=== PATIENT | female | born 1950 | race Two or more races ===

== ENCOUNTER 2018-06-09 11:25 | Emergency (ER) | payer MEDICARE, MEDICAID ==
[~2018-06-09] VITALS: Ht 152.4 cm; Wt 59.0 kg
[2018-06-09] MEDS ORDERED: ASPirin 81 mg TAB PO ONE (11:45)
[2018-06-09 12:08] LABS: Basophils # (auto) 0.1 uL; Basophils % (auto) 0.7 % (0.0-2.0); Eosinophils # (auto) 0.2 uL; Eosinophils % (auto) 2.8 % (0.0-7.0); Hematocrit 42.7 % (36.0-46.0); Hemoglobin 14.2 g/dL (12.2-16.2); Lymphocytes # (auto) 4.8 uL; Lymphocytes % (auto) 54.3 % (10.0-50.0); Mean Corpuscular Hemoglobin 30.6 pg (28.0-32.0); Mean Corpuscular Hgb Conc. 33.4 g/dL (32.0-36.0); Mean Corpuscular Volume 91.6 fL (80.0-100.0); Monocytes # (auto) 0.5 uL; Monocytes % (auto) 5.5 % (0.0-12.0); Neutrophils # (auto) 3.2 uL; Neutrophils % (auto) 36.7 % (37.0-80.0); Nucleated Red Blood Cells % 0.1 %; Platelet Count (auto) 234 10^3/uL (140-450); Red Blood Cells 4.66 10^6/uL (4.0-5.20); Red Cell Distribution Width 12.7 % (11.8-14.3); White Blood Cell 8.8 10^3/uL (4.4-10.8)
[2018-06-09 12:30] LABS: INR 0.95 (0.9-1.15); Partial Thromboplastin Time 27.6 sec (23.78-33.04); Prothrombin Time 10.2 sec (9.27-12.13)
[2018-06-09 12:31] LABS: Albumin 4.3 g/dL (3.4-5.0); Anion Gap 5 (5-15); Blood Urea Nitrogen 18 mg/dL (7-18); Calcium 9.3 mg/dL (8.5-10.1); Carbon Dioxide 29 mmol/L (21-32); Chloride 104 mmol/L (98-107); Glucose 98 mg/dL (74-106); Potassium 4.2 mmol/L (3.5-5.1); Sodium 138 mmol/L (136-145)
[2018-06-09 12:37] LABS: Alanine Aminotransferase 17 U/L (13-56); Alkaline Phosphatase 80 U/L (45-117); Aspartate Aminotransferase 14 U/L (15-37); BUN/Creatinine Ratio 21.7; Bilirubin, Total 0.4 mg/dL (0.2-1.0); GFR African American 87 mL/min; GFR Non-African American 72 mL/min; Total Protein 7.7 g/dL (6.4-8.2)
[2018-06-09] MEDS ORDERED: HYDROcodone-ACET 10/325MG TAB PO ONE (13:15)
[2018-06-09 13:37] LABS: Urine Bacteria NONE SEEN /hpf (None Seen); Urine Blood Negative /uL (Negative); Urine Specific Gravity 1.011 (1.001-1.035); Urine WBC 1 /hpf (0 - 5)
[2018-06-09] MEDS: KETOROLAC TROMETH 30 MG/ML 1ML VIAL IV ONE ×2 (15:15→15:43)
[2018-06-09 15:52] VITALS: BP 133/82
== END 2018-06-09 16:50 | disposition home or self-care (01) ==
LOC: ER 11:27
DX: R07.89 Other chest pain (principal); N39.0 Urinary tract infection, site not specified; I11.0 Hypertensive heart disease with heart failure; I50.9 Heart failure, unspecified; J44.9 Chronic obstructive pulmonary disease, unspecified; Z90.710 Acquired absence of both cervix and uterus; Z86.711 Personal history of pulmonary embolism; Z88.1 Allergy status to other antibiotic agents; Z88.6 Allergy status to analgesic agent
CPT/HCPCS: 36415; 71045; 80053; 81001; 84484; 85025; 85610; 85730; 93005; 96374; 99284; J1885

== ENCOUNTER 2019-01-10 05:55 | Inpatient (IN) | payer MEDICARE, MEDICAID ==
[~2019-01-10] VITALS: Ht 162.6 cm; Wt 77.3 kg
[2019-01-10 06:49] LABS: Basophils # (auto) 0.1 uL; Eosinophils # (auto) 0.1 uL; Eosinophils % (auto) 1.1 % (0.0-7.0); Hematocrit 43.2 % (36.0-46.0); Hemoglobin 14.1 g/dL (12.2-16.2); Lymphocytes % (auto) 39.7 % (10.0-50.0); Mean Corpuscular Hemoglobin 30.6 pg (28.0-32.0); Mean Corpuscular Hgb Conc. 32.6 g/dL (32.0-36.0); Mean Corpuscular Volume 93.9 fL (80.0-100.0); Monocytes # (auto) 0.6 uL; Neutrophils # (auto) 5.2 uL; Neutrophils % (auto) 52.2 % (37.0-80.0); Nucleated Red Blood Cells % 0.2 %; Platelet Count (auto) 274 10^3/uL (140-450); Red Cell Distribution Width 14.5 % (11.8-14.3); White Blood Cell 9.9 10^3/uL (4.4-10.8)
[2019-01-10] MEDS ORDERED: ONDANSETRON HCL 4 MG/2 ML VIAL IV ONE (07:00)
[2019-01-10] MEDS ORDERED: MORPHINE SULF INJ 2 MG/ML SYRINGE 1ML IV ONE (07:00)
[2019-01-10] MEDS ORDERED: SODIUM CHLORIDE 0.9% 500 ML IV ONE (07:00)
[2019-01-10 07:10] LABS: Calcium 8.3 mg/dL (8.5-10.1); Potassium 3.7 mmol/L (3.5-5.1)
[2019-01-10 07:18] LABS: Albumin 3.5 g/dL (3.4-5.0); BUN/Creatinine Ratio 17.8; Bilirubin, Total 0.3 mg/dL (0.2-1.0)
[2019-01-10] MEDS ORDERED: traMADol HCL 50 MG TAB PO PRN (09:45)
[2019-01-10] MEDS ORDERED: DEXTROSE (50%) 50ML SYRG IV PRN (09:45)
[2019-01-10] MEDS ORDERED: LACTULOSE 20Gm/30ML SOLN PO PRN (09:45)
[2019-01-10] MEDS ORDERED: ACETAMINOPHEN 500 MG TAB PO PRN (09:45)
[2019-01-10] MEDS ORDERED: ALBUTEROL SULF 2.5 MG/0.5ML(0.5%) NEB SOLN NEB PRN (09:45)
[2019-01-10] MEDS: PANTOPRAZOLE 40 MG TAB PO SCH (10:23)
[2019-01-10] MEDS: ENOXAPARIN SOD 40 MG/0.4 ML SYRINGE SC SCH (10:24)
[2019-01-10] MEDS: methylPREDNISolone SOD SUCC 40 MG/ML VL IV SCH ×2 (10:24→22:08)
--- NOTE | 2019-01-10 11:04 | NUR ---
MS admit from ER BLANCA PATEL admitted to tele/MS after report received. Patient oriented to ABHIJIT ANDRE RN primary RN, unit, room, bed, and unit policies regarding patient care and visiting hours. Patient weighed by bedscale and encouraged to call if they need something. All questions and concerns addressed, patient verbalized understanding.
--- NOTE | 2019-01-10 11:05 | NUR ---
Ambulate to bathroom Ambulated patient to bathroom with moderate assistance from aide. Patient expressed some pain. Patient ambulated back to bed with the same assistance.
[2019-01-10] MEDS: InsuLIN REG 1unit/0.01ml Soln (100units/ml) SC SCH ×3 (11:30→22:00)
[2019-01-10] MEDS: IPRATROPIUM BROM 0.5 MG/2.5ML INH SOL NEB SCH ×2 (11:47→19:32)
[2019-01-10] MEDS: ALBUTEROL SULF 2.5 MG/0.5ML(0.5%) NEB SOLN NEB SCH ×2 (11:47→19:32)
[2019-01-10] MEDS: LEVOFLOXACIN 500MG 100 ML IV SCH (12:07)
[2019-01-10] MEDS: ACCU-CHEK COMFORT CURVE STRIP VI SCH ×3 (12:07→22:07)
[2019-01-10] MEDS ORDERED: CARV6.2551 PO (12:23)
[2019-01-10] MEDS ORDERED: PANT1INJ3 PO (12:23)
[2019-01-10] MEDS ORDERED: GABA300C10 PO (12:23)
[2019-01-10] MEDS ORDERED: ASPI-498 PO (12:23)
[2019-01-10] MEDS ORDERED: IBUP600T27 PO (12:23)
[2019-01-10] MEDS ORDERED: MELA3TAB27 PO (12:23)
[2019-01-10] MEDS ORDERED: LEV100T PO (12:23)
[2019-01-10] MEDS ORDERED: CYCL7.5T15 PO (12:23)
[2019-01-10] MEDS ORDERED: KEP500T PO (12:23)
[2019-01-10] MEDS ORDERED: RIVA20TA PO (12:23)
[2019-01-10] MEDS ORDERED: CYA100I PO (12:23)
[2019-01-10] MEDS ORDERED: AMIO200T33 PO (12:23)
[2019-01-10] MEDS ORDERED: POTA10TA51 PO (12:23)
[2019-01-10] MEDS ORDERED: AMLO5TAB15 PO (12:23)
[2019-01-10] MEDS ORDERED: FURO20TA3 PO (12:23)
[2019-01-10] MEDS ORDERED: CYCL5TAB PO (12:23)
[2019-01-10 13:00] VITALS: BP 114/61
--- NOTE | 2019-01-10 13:00 | NUR ---
Bedside Commode Patient is now using bedside commode with moderate assistance.
[2019-01-10 13:45] VITALS: BP 109/67
--- NOTE | 2019-01-10 14:21 | NUR ---
Re: Wound Photos Patient refuses to have pictures taken at this time. Patient states, "they already took pictures downstairs." Will put in wound care consult for abrasion to the right knee.
[2019-01-10 16:59] VITALS: BP 101/57
--- NOTE | 2019-01-10 17:00 | NUR ---
Re: Ortho Consult Dr. Espinosa at bedside. Patient does not require surgery.
[2019-01-10] MEDS: traMADol HCL 50 MG TAB PO PRN ×2 (17:50→22:39)
[2019-01-10 17:58] VITALS: BP 114/61
--- NOTE | 2019-01-10 19:45 | NUR ---
Closing Shift Note Patient resting in bed. Patient shows no signs or symptoms of distress. Will endorse care to the cage shift manager RN.
--- NOTE | 2019-01-10 19:50 | NUR ---
Opening Shift Note Assumed care of patient, awake and alert. No S/S of distress/SOB or pain. Instructed on POC and to call for assist PRN, will continue to monitor for changes Q1hr and PRN.
[2019-01-10] MEDS: PROMETHAZINE HCL 25 MG/ML 1ML IV PRN (22:39)
[2019-01-10 22:44] VITALS: BP 107/65
[2019-01-11] MEDS: ALBUTEROL SULF 2.5 MG/0.5ML(0.5%) NEB SOLN NEB SCH ×5 (00:22→23:43)
[2019-01-11] MEDS: IPRATROPIUM BROM 0.5 MG/2.5ML INH SOL NEB SCH ×5 (00:22→23:43)
[2019-01-11] MEDS: TEMAZEPAM 15 MG CAP PO PRN ×2 (01:43→22:51)
[2019-01-11 05:53] VITALS: BP 108/61
[2019-01-11] MEDS: ACCU-CHEK COMFORT CURVE STRIP VI SCH ×4 (06:38→22:35)
[2019-01-11] MEDS: InsuLIN REG 1unit/0.01ml Soln (100units/ml) SC SCH ×4 (06:39→22:00)
[2019-01-11 09:00] VITALS: BP 113/73
[2019-01-11] MEDS: methylPREDNISolone SOD SUCC 40 MG/ML VL IV SCH ×2 (09:45→22:33)
[2019-01-11] MEDS: ENOXAPARIN SOD 40 MG/0.4 ML SYRINGE SC SCH (09:45)
[2019-01-11] MEDS: LEVOFLOXACIN 500MG 100 ML IV SCH (09:45)
[2019-01-11] MEDS: PANTOPRAZOLE 40 MG TAB PO SCH (09:45)
[2019-01-11 13:00] VITALS: BP 120/71
--- NOTE | 2019-01-11 13:20 | NUR ---
WOUND CARE NOTE: Wound care in to see patient per wound care request regarding "wound to R knee" that are noted present on admission. Patient is 68 y/o female admitted Post mechanical Fall at home. Patient with history of htn, DM, CKD, liver disease, PE, COPD. Patient is resting in bed in Rm. 296B. Patient is awake,alert and oriented. She's able to assist in turning and repositioning. Her Amadou score is 19. Patient is in no stated pain at this time. No wound noted other that 1.8x2.2cm partial thickness abrasion to R knee. Cleansed wound with NS, patted dry with sterile gauze applied Thera honey gel and covered with Bandaid. Photographs of wound are taken for reference. Patient tolerated well. Bed in low position, call snowden on hand, bed alarm on. No further wound care monitoring needed at this time. RECOMMENDATION: EOD/PRN dressing change to Rt. knee abrasion per MD order, frequent turning and repositioning schedule as condition permits, redistribute pressure points with pillows,elevate heels on pillows, new wound consult in case of active wound,pressure injury, Amadou score of 12 and below. Addendum: 01/11/19 at 1726 by Ksenia Jang RN Amended: Links added.
[2019-01-11] MEDS: GABAPENTIN 400 MG CAP PO SCH ×2 (14:25→22:34)
[2019-01-11 17:00] VITALS: BP 114/72
[2019-01-11] MEDS: traMADol HCL 50 MG TAB PO PRN (17:49)
[2019-01-11] MEDS: PROMETHAZINE HCL 25 MG/ML 1ML IV PRN (17:56)
[2019-01-11] MEDS ORDERED: LORazepam 2MG/ML-1ML VIAL IV PRN (20:00)
--- NOTE | 2019-01-11 20:30 | NUR ---
Received call from [facility] that patient is scheduled for MRA of the neck and 20 gauge IV catheter is needed for the procedure. Communication relayed to the patient. Patient has a 22 gauge IV and needed IV restart for 20 gauge. Patient refused IV restart at this time. Patient aware of the importance for the new IV restart for the procedure to push through. Patient still refused. Will continue to monitor patient.
[2019-01-11 22:00] VITALS: BP 130/87
--- NOTE | 2019-01-11 22:00 | NUR ---
Patient reminded of the IV reinsertion. Patient still refused at this time. Care continued.
[2019-01-11] MEDS: HYDROcodone-ACET 7.5/325MG TAB PO PRN (22:34)
[2019-01-11] MEDS: LEVETIRACETAM 500 MG TAB PO SCH (22:34)
[2019-01-12 05:00] VITALS: BP 129/74
[2019-01-12] MEDS: GABAPENTIN 400 MG CAP PO SCH ×3 (05:54→22:25)
[2019-01-12] MEDS: HYDROcodone-ACET 7.5/325MG TAB PO PRN ×4 (05:54→21:45)
--- NOTE | 2019-01-12 06:00 | NUR ---
Patient reminded of the needed Iv restart. Patient still refused. Care continued.
[2019-01-12] MEDS: ALBUTEROL SULF 2.5 MG/0.5ML(0.5%) NEB SOLN NEB SCH ×3 (06:17→18:59)
[2019-01-12] MEDS: IPRATROPIUM BROM 0.5 MG/2.5ML INH SOL NEB SCH ×3 (06:18→18:59)
--- NOTE | 2019-01-12 06:45 | NUR ---
UA and UDS specimen sent. Patient verbalized having BM this morning. No complains at this time. Will give report to oncoming RN.
[2019-01-12] MEDS: ACCU-CHEK COMFORT CURVE STRIP VI SCH ×4 (07:03→22:25)
[2019-01-12] MEDS: InsuLIN REG 1unit/0.01ml Soln (100units/ml) SC SCH ×4 (07:03→22:00)
--- NOTE | 2019-01-12 07:15 | NUR ---
Patient has no complains at his time. All questions and concerns addressed. All needs attended to. Report given to oncoming RN including, but not limited to: patient refusing 20 gauge IV reinsertion; signed paper for request for release of information from [facility] with apartment community assistant manager.
[2019-01-12 07:22] LABS: Urine WBC None Seen /hpf (0 - 5)
[2019-01-12 07:31] LABS: Urine Bacteria FEW /hpf (None Seen); Urine Blood Negative /uL (Negative); Urine Specific Gravity 1.015 (1.001-1.035)
[2019-01-12 08:02] LABS: Alcohol, Urine < 3.0 mg/dL (0-5); Amphetamine Screen, Urine NEGATIVE (NEGATIVE); Barbiturate Scree,Urine NEGATIVE (NEGATIVE); Benzodiazephine Screen, Urine NEGATIVE (NEGATIVE); Cannabinoid Screen, Urine NEGATIVE (NEGATIVE); Cocaine Screen, Urine NEGATIVE (NEGATIVE); Opiate Scree,Urine POSITIVE (NEGATIVE); Phencyclidine Screen, Urine NEGATIVE (NEGATIVE)
--- NOTE | 2019-01-12 08:10 | NUR ---
Radiology called to clarify orders between md davila and md brandon, informed radiology of pt refusing 20g iv insertion, angio cannot be done with out 20g iv
[2019-01-12 09:10] VITALS: BP 126/78
[2019-01-12] MEDS: ENOXAPARIN SOD 40 MG/0.4 ML SYRINGE SC SCH (09:30)
[2019-01-12] MEDS: methylPREDNISolone SOD SUCC 40 MG/ML VL IV SCH ×2 (09:30→22:03)
[2019-01-12] MEDS: LEVOFLOXACIN 500MG 100 ML IV SCH (09:30)
[2019-01-12] MEDS: LEVETIRACETAM 500 MG TAB PO SCH ×2 (09:31→22:25)
[2019-01-12] MEDS: PANTOPRAZOLE 40 MG TAB PO SCH (09:31)
--- NOTE | 2019-01-12 10:32 | NUR ---
MD Gupta rounded on pt updated on plan of care notified him of pt refusal for bigger iv placement unable with current iv to recieve contrasted procedures
--- NOTE | 2019-01-12 11:15 | NUR ---
EEG COMPLETED AT BEDSIDE. SG LINDO.
--- NOTE | 2019-01-12 11:54 | NUR ---
mri called to come get pt for scan of the brain
--- NOTE | 2019-01-12 12:42 | NUR ---
pt back from mri
[2019-01-12 13:00] VITALS: BP 112/72
[2019-01-12] MEDS ORDERED: LORazepam 2MG/ML-1ML VIAL IV PRN (15:30)
--- NOTE | 2019-01-12 17:05 | NUR ---
PT REFUSED UNITS OF INSULIN STATED "MY BLOOD SUGAR WILL DROP TO MUCH AFTER I EAT" EDUCTAION GIVEN RISK AND BENEFITS EXPLAINED
[2019-01-12 17:06] VITALS: BP 116/80
[2019-01-12 22:00] VITALS: BP 119/66
--- NOTE | 2019-01-12 22:05 | NUR ---
HOSPITALIST PAGED The patient c/o worsening coughing that began this morning. The patient states that she is unable to resting with the coughing and requested medication for coughing. Hospitalist has been notified and new order for Robitussin has been received.
[2019-01-12] MEDS: guaiFENesin-DM 100/10mg/5ml SYR PO PRN (22:26)
[2019-01-12] MEDS: TEMAZEPAM 15 MG CAP PO PRN (22:26)
[2019-01-13] MEDS: IPRATROPIUM BROM 0.5 MG/2.5ML INH SOL NEB SCH ×4 (00:12→19:21)
[2019-01-13] MEDS: ALBUTEROL SULF 2.5 MG/0.5ML(0.5%) NEB SOLN NEB SCH ×4 (00:12→19:21)
[2019-01-13] MEDS: HYDROcodone-ACET 7.5/325MG TAB PO PRN ×2 (02:22→07:34)
[2019-01-13 05:46] VITALS: BP 133/83
[2019-01-13] MEDS: InsuLIN REG 1unit/0.01ml Soln (100units/ml) SC SCH ×4 (06:18→22:00)
[2019-01-13] MEDS: GABAPENTIN 400 MG CAP PO SCH ×3 (06:18→23:00)
[2019-01-13] MEDS: ACCU-CHEK COMFORT CURVE STRIP VI SCH ×4 (06:18→23:00)
--- NOTE | 2019-01-13 07:30 | NUR ---
Opening Shift Note Assumed care of patient, awake and alert. No S/S of distress/SOB or pain ON 2 LPM via nasal cannula. Instructed on POC and to call for assist PRN, will continue to monitor for changes Q1hr and PRN. Bed in low and locked position, rails up x2, no-slip socks on, bedside commode within reach.
--- NOTE | 2019-01-13 08:00 | NUR ---
TRANSDERMAL PAIN PATCH ON MORNING ASSESSMENT FOUND TRANSDERMAL BUPRENORPHINE PATCH 15MCG/H ON PATIENT, SHE STATES THAT SHE HAS HAD IT ON SINCE MONDAY, ORDERED BY HER PAIN MANAGEMENT DR SAMAYOA AND THAT SHE STILL NEEDS IT ON. INFORMED PATIENT ON RISK OF DRUG INTERACTION AND ACCUMULATION IF LEFT ON AND THAT I WILL INFORM THE PHYSICIAN OF HER HOME USE AND ANY EQUIVALENT WE MAY HAVE TO OFFER HER IN ITS PLACE. PATIENT VERBALIZES UNDERSTANDING. PATCH REMOVED AND DISPOSED OF, CHARTED IN PATIENTS MED REC. WILL CONTINUE TO MONITOR PATIENT.
[2019-01-13 08:45] VITALS: BP 133/83
[2019-01-13 09:00] VITALS: BP 105/72
[2019-01-13] MEDS: LEVOFLOXACIN 500MG 100 ML IV SCH (10:12)
[2019-01-13] MEDS: methylPREDNISolone SOD SUCC 40 MG/ML VL IV SCH ×2 (10:12→22:59)
[2019-01-13] MEDS: PANTOPRAZOLE 40 MG TAB PO SCH (10:13)
[2019-01-13] MEDS: ENOXAPARIN SOD 40 MG/0.4 ML SYRINGE SC SCH (10:13)
[2019-01-13] MEDS: LEVETIRACETAM 500 MG TAB PO SCH ×2 (10:13→23:00)
--- NOTE | 2019-01-13 10:15 | NUR ---
DR Jannie FRENCH AT BEDSIDE INFORMED PATIENT OF TRANSDERMAL PAIN PATCH AND PATIENTS PAIN MANAGEMENT FOR SPINAL STENOSIS, NEW PAIN MEDICATION ADDED. AWAITING DR HARDING AND INFORMATION FROM [facility].
--- NOTE | 2019-01-13 10:30 | NUR ---
DR HARDING AT BEDSIDE REVIEWED MEDICAL RECORDS FROM [facility] INCLUDING BRAIN ANGIOGRAM PERFORMED BY DR Osmani JERONIMO, PER DR HARDING HE WILL REVIEW PLAN OF CARE WITH DR Jannie FRENCH.
[2019-01-13] MEDS ORDERED: [UNRECOGNIZED DRUG - CODE] TD (11:05)
[2019-01-13] MEDS: MORPHINE SULF INJ 2 MG/ML SYRINGE 1ML IV PRN ×4 (11:18→22:55)
--- NOTE | 2019-01-13 12:08 | NUR ---
PHYSICAL THERAPY AT BEDSIDE PATIENT AMBULATING WITH FRONT WHEEL WALKER, STEADY GAIT.
--- NOTE | 2019-01-13 12:11 | NUR ---
Nutrition Assessment Notes please see attached link for complete assessment Est. Needs BW 77 [id number] kcal (23-25 kcal/kgBW), 77-84 gms pro (1.0-1.1 gms/kgBW). Will continue to monitor pertinent labs and reassess nutrient need prn Addendum: 01/13/19 at [address] Amended: Links added.
[2019-01-13 13:00] VITALS: BP 112/79
[2019-01-13] MEDS: guaiFENesin-DM 100/10mg/5ml SYR PO PRN ×2 (15:11→19:24)
[2019-01-13 16:33] VITALS: BP 117/73
--- NOTE | 2019-01-13 19:25 | NUR ---
Opening Shift Note Assumed care of patient, awake and alert. No S/S of distress/SOB. Patient c/o coughing and requested cough medication. Will treat with PRN Robitussin. Instructed on POC and to call for assist PRN, will continue to monitor for changes Q1hr and PRN.
--- NOTE | 2019-01-13 19:45 | NUR ---
Patient is ambulating in the hallway with walker. Patient is tolerating ambulation well. Addendum: 01/13/19 at 1948 by Christopher Alejandro RN *Wrong patient*
[2019-01-13 21:53] VITALS: BP 126/72
--- NOTE | 2019-01-13 22:10 | NUR ---
INSULIN REFUSAL Patient refuses insulin for a blood sugar of 154. The patient states that her blood sugar is "fine" and that she does not take insulin at home. Patient educated on the risk of medication refusal. Patient verbalized understanding but still refuses.
[2019-01-14] MEDS: IPRATROPIUM BROM 0.5 MG/2.5ML INH SOL NEB SCH ×4 (00:17→19:28)
[2019-01-14] MEDS: ALBUTEROL SULF 2.5 MG/0.5ML(0.5%) NEB SOLN NEB SCH ×4 (00:17→19:28)
[2019-01-14] MEDS: MORPHINE SULF INJ 2 MG/ML SYRINGE 1ML IV PRN ×5 (04:04→22:04)
[2019-01-14] MEDS: guaiFENesin-DM 100/10mg/5ml SYR PO PRN ×3 (04:04→22:03)
[2019-01-14 05:44] VITALS: BP 121/76
[2019-01-14] MEDS: GABAPENTIN 400 MG CAP PO SCH ×3 (06:30→22:04)
[2019-01-14] MEDS: InsuLIN REG 1unit/0.01ml Soln (100units/ml) SC SCH ×4 (06:31→22:05)
[2019-01-14] MEDS: ACCU-CHEK COMFORT CURVE STRIP VI SCH ×4 (06:31→22:05)
--- NOTE | 2019-01-14 06:45 | NUR ---
INSULIN REFUSAL Patient refuses insulin for a blood sugar of 155. Patient educated again on the risk of medication refusal. Patient verbalized understanding but still refuses.
--- NOTE | 2019-01-14 07:34 | NUR ---
Opening Shift Note Assumed care of patient, awake and alert. No S/S of distress/SOB. Patient rated pain at 10/10. Bed in lowest and locked position with side rails up x2 and call light in reach. Instructed on POC and to call for assist PRN, will continue to monitor for changes Q1hr and PRN.
[2019-01-14 08:41] VITALS: BP 140/89
--- NOTE | 2019-01-14 10:00 | NUR ---
PATIENT REFUSED WOUND CARE. PATIENT EDUCATED ON THE RISKS AND BENEFITS. PATIENT CONTINUES TO REFUSE.
[2019-01-14] MEDS: methylPREDNISolone SOD SUCC 40 MG/ML VL IV SCH ×2 (10:37→22:01)
[2019-01-14] MEDS: LEVOFLOXACIN 500MG 100 ML IV SCH (10:37)
[2019-01-14] MEDS: PANTOPRAZOLE 40 MG TAB PO SCH (10:38)
[2019-01-14] MEDS: ENOXAPARIN SOD 40 MG/0.4 ML SYRINGE SC SCH (10:38)
[2019-01-14] MEDS: LEVETIRACETAM 500 MG TAB PO SCH ×2 (10:38→22:04)
[2019-01-14 13:00] VITALS: BP 119/76
--- NOTE | 2019-01-14 13:00 | NUR ---
ATTEMPT TO CHANGE IV PT REFUSING IV CHANGE. PT STATED THAT SHE DOESN'T WANT TO BE POKED WITH ANOTHER IV. THE PT WAS EDUCATED ON THE RISKS/BENEFITS OF CHANGING THE IV. PT VERBALIZED UNDERSTANDING.
[2019-01-14 16:46] VITALS: BP 126/74
--- NOTE | 2019-01-14 19:25 | NUR ---
Opening Shift Note Assumed care of patient, awake and alert x 4. No S/S of distress/SOB. Bed is in lowest position and locked. Call light within reach. Board updated. Instructed on POC and to call for assist PRN, will continue to monitor for changes Q1hr and PRN.
--- NOTE | 2019-01-14 20:04 | NUR ---
Informed patient that our hospital policy is to change IV sites every 72 hours and that the IV in her left forearm is past due to be changed. Patient educated on increased risk for infection if IV persists. Patient states that she was told she would be discharged tomorrow and wants the IV to stay. Site appears CDI with no signs of inflammation or erythema. Patient acknowledged education but wants to keep IV. Will continue to monitor.
--- NOTE | 2019-01-14 21:58 | NUR ---
Updated patient's home medication list from list patient provided.
[2019-01-14] MEDS: TEMAZEPAM 15 MG CAP PO PRN (22:03)
--- NOTE | 2019-01-14 22:42 | NUR ---
Wound care performed per MD order. Patient tolerated well.
[2019-01-14 23:02] VITALS: BP 142/97
[2019-01-14] MEDS ORDERED: NORT25CA PO (23:47)
[2019-01-14] MEDS ORDERED: OMEP20TA PO (23:50)
[2019-01-14] MEDS ORDERED: TEMA30CA PO (23:51)
[2019-01-15] MEDS ORDERED: DIPH50TA9 PO (00:08)
[2019-01-15] MEDS ORDERED: IPRAAER6 IN (00:14)
[2019-01-15] MEDS ORDERED: NITR0.4S29 SL (00:16)
[2019-01-15] MEDS: ALBUTEROL SULF 2.5 MG/0.5ML(0.5%) NEB SOLN NEB SCH ×4 (00:27→19:16)
[2019-01-15] MEDS: IPRATROPIUM BROM 0.5 MG/2.5ML INH SOL NEB SCH ×4 (00:27→19:16)
--- NOTE | 2019-01-15 00:27 | NUR ---
Respiratory note: PT REFUSED SCHED MED NEB AT THIS TIME. PT STATES SHE JUST WANTS TO SLEEP. WILL CONTINUE TO MONITOR.
[2019-01-15] MEDS: MORPHINE SULF INJ 2 MG/ML SYRINGE 1ML IV PRN ×5 (04:02→19:41)
[2019-01-15] MEDS: guaiFENesin-DM 100/10mg/5ml SYR PO PRN ×4 (04:03→16:07)
[2019-01-15 05:12] VITALS: BP 155/91
[2019-01-15] MEDS: InsuLIN REG 1unit/0.01ml Soln (100units/ml) SC SCH ×3 (06:14→16:49)
[2019-01-15] MEDS: GABAPENTIN 400 MG CAP PO SCH ×2 (06:14→13:48)
[2019-01-15] MEDS: ACCU-CHEK COMFORT CURVE STRIP VI SCH ×3 (06:15→16:49)
--- NOTE | 2019-01-15 06:27 | NUR ---
Patient refused insulin for blood glucose of 147 mg/dl. Patient made aware of sliding scale order and importance of glucose management during acute illness but still refused. She said if her blood glucose is elevated at 1130 she will take inuslin then.
[2019-01-15 06:50] LABS: Basophils # (auto) 0 uL; Basophils % (auto) 0.2 % (0.0-2.0); Eosinophils # (auto) 0 uL; Hematocrit 43.4 % (36.0-46.0); Hemoglobin 14.3 g/dL (12.2-16.2); Lymphocytes # (auto) 4.4 uL; Lymphocytes % (auto) 40.5 % (10.0-50.0); Mean Corpuscular Hemoglobin 30.6 pg (28.0-32.0); Mean Corpuscular Volume 92.8 fL (80.0-100.0); Monocytes # (auto) 0.3 uL; Monocytes % (auto) 3.1 % (0.0-12.0); Neutrophils # (auto) 6.1 uL; Neutrophils % (auto) 56.2 % (37.0-80.0); Nucleated Red Blood Cells % 0.1 %; Platelet Count (auto) 222 10^3/uL (140-450); Red Blood Cells 4.68 10^6/uL (4.0-5.20); Red Cell Distribution Width 14.6 % (11.8-14.3); White Blood Cell 10.8 10^3/uL (4.4-10.8)
[2019-01-15 07:03] LABS: Calcium 8.6 mg/dL (8.5-10.1); Potassium 4.2 mmol/L (3.5-5.1)
--- NOTE | 2019-01-15 08:00 | NUR ---
OPENING NOTE OBSERVED PT SITTING UP IN BED. NO SOB/DISTRESS NOTED AT REST. PT DENIES ANY SOB/CHEST PAIN. PATIENT C/O 10/10 BACK PAIN AND HEADACHE. DENIES VISUAL DISTURBANCE. PATIENT UPDATED ON POC AND PENDING ABG, VERBALIZED UNDERSTANDING. SEIZURE AND FALL PRECAUTIONS IN PLACE. CALL LIGHT WITHIN REACH. PT ENCOURAGED TO CONTACT STAFF FOR PRN ASSISTANCE. WILL CONTINUE TO MONITOR Q1H AND PRN. CONTINUE PT CARE.
[2019-01-15 09:00] VITALS: BP 127/82
[2019-01-15] MEDS: PANTOPRAZOLE 40 MG TAB PO SCH (09:43)
[2019-01-15] MEDS: LEVETIRACETAM 500 MG TAB PO SCH (09:43)
[2019-01-15] MEDS: methylPREDNISolone SOD SUCC 40 MG/ML VL IV SCH (09:43)
[2019-01-15] MEDS: ENOXAPARIN SOD 40 MG/0.4 ML SYRINGE SC SCH (09:43)
[2019-01-15] MEDS ORDERED: LEVOFLOXACIN 500 MG TAB PO SCH (10:00)
--- NOTE | 2019-01-15 11:32 | NUR ---
REPEAT ABG ORDERS RECEIVED FOR REPEAT ABG. AMBULATED PATIENT AROUND NURSING STATION X 2. SOB NOTED UPON EXERTION. RETURNED TO BED. RT PAGED FOR REPEAT ABG. AT BEDSIDE FOR BLOOD DRAW.
[2019-01-15 13:00] VITALS: BP 148/76
--- NOTE | 2019-01-15 15:00 | NUR ---
WOUND CARE WOUND CARE PROVIDED FOR RIGHT KNEE WOUND. WOUND CLEANSED WITH WOUND CLEANSER AND PATTED DRY WITH STERILE GAUZE. WOUND BED COVERED WITH THERA HONEY. WOUND COVERED WITH OPTIFOAM DRESSING. PT TOLERATED WELL. PRIOR TO DRESSING CHANGE, PHOTO TAKEN OF WOUND AND FORM PLACED IN WOUND CARE BOX.
--- NOTE | 2019-01-15 15:13 | NUR ---
DISCHARGE PRESCRIPTIONS DC PRESCRIPTIONS FAXED TO [facility] FOR FILL.
--- NOTE | 2019-01-15 15:39 | NUR ---
assessment Patient is a 68 year old female who is alert and oriented. Prior to admission patient resided at [facility] for the past year. Per patient she has been affiliated with [facility] for the past 10 years. Patients emergency contact is her daughter Rayo [phone]. Patients PCP is Dr Chele Sapp. Patient has a fww and a cane for home use. Patient will need home 02. Verónica GOFF will satisfy order. I informed patient she has a right to speak to a social media analyst regarding all care. I informed patient she has a right to participate in any and all discharge planning. Patient does not have a POA and advanced directive. I have offered patient information on POA and advanced directives. I informed the patient the advantages and benefits of having an Advanced Directive. Patient verbalized understanding and agreed to discharge plan. Addendum: 01/15/19 at 1548 by Arina CONTRERAS Amended: Links added.
--- NOTE | 2019-01-15 16:01 | NUR ---
D/C Planning Per consult for home oxygen 2 l/min by nasal cannula. Contact [facility] Ph:) Fax:) faxed medical records. Per Natalee from [facility] referral has been recieved and portable oxygen will be deliver to bedside before 18:00 and concentrate oxygen will deliver to patient home at [facility]. Informed RN Lori. Addendum: 01/15/19 at 1605 by SHAE FERRARI Amended: Links added.
[2019-01-15 17:00] VITALS: BP 145/95
--- NOTE | 2019-01-15 17:47 | NUR ---
DISCHARGE PRESCRIPTIONS DC PRESCRIPTIONS FILLED BY [facility]. OBTAINED BY RN AND DELIVERED TO PATIENT AT BEDSIDE.
--- NOTE | 2019-01-15 17:54 | NUR ---
HOME OXYGEN CONTACTED [facility] REGARDING DELIVERY OF HOME O2. STATING THEY WILL ATTEMPT TO CONTACT FACILITIES AND GROUNDS DIRECTOR AND CONTACT PRIMARY NURSE REGARDING STATUS.
[2019-01-15 18:24] VITALS: BP 135/81
--- NOTE | 2019-01-15 18:26 | NUR ---
OXYGEN HOME O2 DELIVERED AT BEDSIDE BY MICHELE. Addendum: 01/15/19 at 1827 by Lori Burnett RN RN PATIENT CURRENTLY WAITING ON TRANSPORT HOME.
--- NOTE | 2019-01-15 20:03 | NUR ---
Discharge instructions given as ordered. Encourage to follow up with PMD as instructed. All questions and concerns addressed. Patient verbalized understanding. Medication reconciliation form completed and copy given to patient. IV removed with catheter intact, pressure dressing applied Patient taken to vehicle via wheelchair with all personal belongings, accompanied by staff and family member. Portable oxygen container delivered and with patient on discharge. No distress noted at time of departure.
== END 2019-01-15 21:03 | disposition home or self-care (01) | DRG 193 ==
LOC: ER 05:55 → EDBD 05:55 → OVERFLOW 05:56 → WEST WING 11:45
PROVIDERS: ADMIT Internal Medicine; ATTEND Internal Medicine
DX: J18.9 Pneumonia, unspecified organism (principal); J96.01 Acute respiratory failure with hypoxia; J44.1 Chronic obstructive pulmonary disease with (acute) exacerbation; J44.0 Chronic obstructive pulmonary disease with (acute) lower respiratory infection; I13.0 Hypertensive heart and chronic kidney disease with heart failure and stage 1 through stage 4 chronic kidney disease, or unspecified chronic kidney disease; S80.02XA Contusion of left knee, initial encounter; G25.2 Other specified forms of tremor; E11.22 Type 2 diabetes mellitus with diabetic chronic kidney disease; J84.10 Pulmonary fibrosis, unspecified; F17.200 Nicotine dependence, unspecified, uncomplicated; E03.9 Hypothyroidism, unspecified; F41.9 Anxiety disorder, unspecified; K76.9 Liver disease, unspecified; I50.9 Heart failure, unspecified; W18.39XA Other fall on same level, initial encounter; N18.9 Chronic kidney disease, unspecified; G40.909 Epilepsy, unspecified, not intractable, without status epilepticus; Z96.652 Presence of left artificial knee joint; G89.4 Chronic pain syndrome; G90.2 Horner's syndrome; Z79.01 Long term (current) use of anticoagulants; Z79.899 Other long term (current) drug therapy; Z90.710 Acquired absence of both cervix and uterus; Z88.1 Allergy status to other antibiotic agents; Z88.8 Allergy status to other drugs, medicaments and biological substances; Y93.89 Activity, other specified; Y92.89 Other specified places as the place of occurrence of the external cause; Y99.8 Other external cause status; Z86.711 Personal history of pulmonary embolism
CPT/HCPCS: 36415; 36600; 70450; 70547; 70551; 71045; 71046; 71250; 73562; 80048; 80053; 80307; 81001; 82805; 82962; 83036; 85025; 87081; 94640; 95819; 97110; 97116; 97530; G0378; J1815; J1956; J2405